=== PATIENT | female | born 1925 | race Caucasian/White ===

== ENCOUNTER → 2017-07-04 | Outpatient (CLI) | payer OTHER ==
[~2017-07-04] MED LIST: ACETAMINOPHEN325 M1 PO; ACIDOPHILUS1 EAC3 PO; ACIDOPHILUS1 EAC4 PO; ACIDOPHILUS1 EACH; ALPHAGAN P10 ML IO; ALPHAGAN P10 ML OP; ALPHAGAN P5 ML OPHTHALMIC; ANTIFUNGAL15 G1 TOP; ANUCORT-HC25 MG RE; ANUSOL-HC21 GM RE; ASPIR 8181 MG PO; AZOPT OPHTH1 %/10 M1; AZOPT OPHTH1 %/10 M1 IO; AZOPT OPHTH1 %/10 M1 OP; AZOPT OPHTH1 %/10 M1 OPHTHALMIC; BACTRIM DS TAB1 EACH PO; BENADRYL25 MG PO; BETAINE HCL300 MG PO; BETIMOL10 ML OP; BISACODYL SUPP10 MG; BISACODYL SUPP10 MG RE; BUSPAR PO; BUSPIRONE HCL10 MG PO; CALCIUM ACETAT667 M2 PO; CALCIUM LACTAT650 M1 PO; CEFUROXIME250 MG PO; CIPROFLOXACIN500 M1 PO; CITRATE OF MAG296 ML PO; COLACE 100 MG100 MG PO; COLACE100 MG PO; COUMADIN 10MG T10 M1 PO; COUMADIN 2.5MG2.5 M1 PO; COUMADIN 4 MG TA4 M1 PO; COUMADIN 5 MG TA5 M1 PO; COUMADIN PO; CYCLOBENZAPRINE10 MG PO; CYMBALTA30 MG PO; CYMBALTA60 MG PO; DERMOLATE ANTI-I2 GM TP; DOCUSATE SODIU100 MG PO; DOXYCYCLINE 10100 MG PO; DULCOLAX5 MG RE; DUONEB 2.5-0.5 M3 ML; DUONEB 2.5-0.5 M3 ML IH; ENSURE113 GM PO; FAMOTIDINE20 MG PO; FIBER LAXATIVE500 MG PO; FIBERCON625 M1 PO; FISH OIL 1,001000 M2 PO; FISH OIL 500 M1 EAC1 PO; FLEET ENEMA118 ML RC; FLEET ENEMA118 ML RE; FLEET ENEMA133 ML RECTAL; FLEXERIL PO; FURADANTIN25 MG/5 ML PO; GENTAMICIN TOP; GLYCOL; GUAIFENESIN/COD10 M1 PO; HYDROCODON-ACE1 EAC7 PO; HYDROCODON-ACE1 EAC8 PO; HYDROCODON-ACE1 EACH PO; HYDROCODONE-AP1 EA12 PO; IBUPROFEN 400400 M2 PO; IRON325 PO; JANTOVEN6 MG PO; KEFLEX500 MG PO; KETOCONAZOLE10 GM TOP; LIDODERM 5%1 PATCH; LIDODERM TOP; LUMIGAN2.5 ML OP; LYRICA 50 MG50 MG PO; LYRICA 75 MG CA75 MG PO; LYRICA100 MG PO; MELATONIN3 MG PO; MELATONIN5 M1 PO; MELOXICAM7.5 MG PO; MI ACID LIQUID355 ML PO; MILK OF MA2400 MG/10 PO; MINERIN CREME454 GM TOP; MIRALAX17 GM PO; MIRALAX255 GM PO; MOM PO; MUCINEX600 MG PO; MUPIROCIN22 GM; NORCO 5-325 TA1 EACH PO; NORTRIPTYLINE H25 M3 PO; NYSTATIN 100,0015 G1 TOP; NYSTATIN1 EA10; NYSTATIN1 EA10 TOP; NYSTATIN15 G3 TOP; OMEPRAZOLE 20 M20 M1 PO; ONDANSETRON HCL4 M2 PO; ONDANSETRON HCL4 M3 PO; ORADENT 0.1% DEN5 G1 TOP; OXYBUTYNIN 5 MG5 M1 PO; OXYBUTYNIN 5 MG5 M2 PO; OXYCODONE HCL 55 MG PO; OXYCODONE HCL5 M1 PO; PAMELOR25 MG PO; PANTOTHENIC AC500 MG PO; PEPCID20 MG PO; PERCOCET 7.5-31 EACH PO; PHOSLO667 MG PO; POTASSIUM20 OR; PRED-G 1% EYE DR5 ML OP; PRENATAL PO; PREPARATION H C51 GM TOP; PREPARATION H1 EAC2 RECTAL; PRIMAXIN PO; PROTONIX40 M1 PO; PROTONIX40 M2 PO; ROCEPHIN 11 GM/1001 PO; SEE COMMENTS; SENNA PLUS TAB1 EACH PO; SENOKOT-S TABL1 EACH PO; TERBINAFINE HC250 MG PO; TIMOLOL GL0.5 %/5 M1 IO; TIMOLOL MA0.25 %/52 OPHTHALMIC; TIMOPTIC-XE5 ML OPHTHALMIC; TOPROL XL25 MG PO; TRIAM60; TRIAMCINOLONE; TRIAMCINOLONE A15 G2; TRIAMCINOLONE A15 GM TOP; TUMS PO; TYLENOL325 MG PO; VANICREAM; VANICREAM TOP; VICODIN; VICODIN 5-5001 EACH PO; VITAMIN D3400 UNIT PO; VITAMIN D400 UNI1 PO; VITAMINC500 PO; XALATAN2.5 ML OPHTHALMIC; XARELTO15 MG PO; ZINC OXIDE56.7 G1 TOP; ZINC SULFATE 2220 M1 PO; ZINC SULFATE 2220 MG PO; ZINC10 MG PO; ZOFRAN4 MG PO; ZYPREXA2.5 MG PO; ZYVOX600 MG PO; [UNRECOGNIZED DRUG - OTHER]
== END ==
LOC: M.WC 02:13
DX: I70.238 Atherosclerosis of native arteries of right leg with ulceration of other part of lower leg (principal); I87.2 Venous insufficiency (chronic) (peripheral); L97.511 Non-pressure chronic ulcer of other part of right foot limited to breakdown of skin; L97.311 Non-pressure chronic ulcer of right ankle limited to breakdown of skin; I10 Essential (primary) hypertension; K21.9 Gastro-esophageal reflux disease without esophagitis; F33.1 Major depressive disorder, recurrent, moderate; F41.1 Generalized anxiety disorder; Z68.23 Body mass index [BMI] 23.0-23.9, adult; F41.9 Anxiety disorder, unspecified

== ENCOUNTER → 2017-07-11 | Outpatient (CLI) | payer OTHER | LOC: M.WC 02:08 | DX: I70.235 Atherosclerosis of native arteries of right leg with ulceration of other part of foot (principal); L97.511 Non-pressure chronic ulcer of other part of right foot limited to breakdown of skin; I70.233 Atherosclerosis of native arteries of right leg with ulceration of ankle; L97.311 Non-pressure chronic ulcer of right ankle limited to breakdown of skin; I87.2 Venous insufficiency (chronic) (peripheral); I10 Essential (primary) hypertension; K21.9 Gastro-esophageal reflux disease without esophagitis; F33.1 Major depressive disorder, recurrent, moderate; F41.1 Generalized anxiety disorder ==

== ENCOUNTER → 2017-07-18 | Outpatient (CLI) | payer OTHER | LOC: M.WC 02:22 | DX: I87.2 Venous insufficiency (chronic) (peripheral) (principal); L97.511 Non-pressure chronic ulcer of other part of right foot limited to breakdown of skin; L97.311 Non-pressure chronic ulcer of right ankle limited to breakdown of skin; I70.233 Atherosclerosis of native arteries of right leg with ulceration of ankle; I70.235 Atherosclerosis of native arteries of right leg with ulceration of other part of foot; I10 Essential (primary) hypertension; K21.9 Gastro-esophageal reflux disease without esophagitis; F33.1 Major depressive disorder, recurrent, moderate; F41.1 Generalized anxiety disorder; Z68.23 Body mass index [BMI] 23.0-23.9, adult; R13.10 Dysphagia, unspecified ==

== ENCOUNTER → 2017-08-02 | Outpatient (CLI) | payer OTHER | LOC: M.WC 01:40 | DX: I70.238 Atherosclerosis of native arteries of right leg with ulceration of other part of lower leg (principal); I87.2 Venous insufficiency (chronic) (peripheral); L97.511 Non-pressure chronic ulcer of other part of right foot limited to breakdown of skin; L97.311 Non-pressure chronic ulcer of right ankle limited to breakdown of skin; K21.9 Gastro-esophageal reflux disease without esophagitis; F33.1 Major depressive disorder, recurrent, moderate; F41.1 Generalized anxiety disorder ==

== ENCOUNTER → 2017-08-16 | Outpatient (CLI) | payer OTHER | LOC: M.WC 00:55 | DX: I70.238 Atherosclerosis of native arteries of right leg with ulceration of other part of lower leg (principal); L97.511 Non-pressure chronic ulcer of other part of right foot limited to breakdown of skin; L97.311 Non-pressure chronic ulcer of right ankle limited to breakdown of skin; K21.9 Gastro-esophageal reflux disease without esophagitis; F33.1 Major depressive disorder, recurrent, moderate; F41.1 Generalized anxiety disorder; F41.9 Anxiety disorder, unspecified ==

== ENCOUNTER → 2017-08-30 | Outpatient (CLI) | payer OTHER | LOC: M.WC 01:33 | DX: L97.511 Non-pressure chronic ulcer of other part of right foot limited to breakdown of skin (principal); L97.311 Non-pressure chronic ulcer of right ankle limited to breakdown of skin; I87.2 Venous insufficiency (chronic) (peripheral); I70.235 Atherosclerosis of native arteries of right leg with ulceration of other part of foot; I70.233 Atherosclerosis of native arteries of right leg with ulceration of ankle; I10 Essential (primary) hypertension; K21.9 Gastro-esophageal reflux disease without esophagitis; F33.1 Major depressive disorder, recurrent, moderate; F41.1 Generalized anxiety disorder; Z68.23 Body mass index [BMI] 23.0-23.9, adult ==

== ENCOUNTER → 2017-09-19 | Outpatient (CLI) | payer OTHER | LOC: M.WC 09:30 | DX: I70.233 Atherosclerosis of native arteries of right leg with ulceration of ankle (principal); L97.311 Non-pressure chronic ulcer of right ankle limited to breakdown of skin; I70.235 Atherosclerosis of native arteries of right leg with ulceration of other part of foot; L97.511 Non-pressure chronic ulcer of other part of right foot limited to breakdown of skin; I87.2 Venous insufficiency (chronic) (peripheral); I10 Essential (primary) hypertension; K21.9 Gastro-esophageal reflux disease without esophagitis; F33.1 Major depressive disorder, recurrent, moderate; F41.1 Generalized anxiety disorder; Z68.23 Body mass index [BMI] 23.0-23.9, adult ==

== ENCOUNTER → 2017-10-03 | Outpatient (CLI) | payer OTHER | LOC: M.WC 01:57 | DX: I70.233 Atherosclerosis of native arteries of right leg with ulceration of ankle (principal); L97.311 Non-pressure chronic ulcer of right ankle limited to breakdown of skin; I70.235 Atherosclerosis of native arteries of right leg with ulceration of other part of foot; L97.511 Non-pressure chronic ulcer of other part of right foot limited to breakdown of skin; I87.2 Venous insufficiency (chronic) (peripheral); I10 Essential (primary) hypertension; K21.9 Gastro-esophageal reflux disease without esophagitis; F33.1 Major depressive disorder, recurrent, moderate; F41.1 Generalized anxiety disorder; Z68.23 Body mass index [BMI] 23.0-23.9, adult ==

== ENCOUNTER → 2017-11-07 | Outpatient (CLI) | payer OTHER | LOC: M.WC 01:31 | DX: I70.238 Atherosclerosis of native arteries of right leg with ulceration of other part of lower leg (principal); L97.511 Non-pressure chronic ulcer of other part of right foot limited to breakdown of skin; I87.2 Venous insufficiency (chronic) (peripheral); I10 Essential (primary) hypertension; K21.9 Gastro-esophageal reflux disease without esophagitis; F33.1 Major depressive disorder, recurrent, moderate; F41.1 Generalized anxiety disorder; Z68.23 Body mass index [BMI] 23.0-23.9, adult ==

== ENCOUNTER 2017-11-16 20:53 | Inpatient (IN) | payer OTHER ==
[~2017-11-16] VITALS: Ht 167.6 cm; Wt 78.9 kg
[~2017-11-16 20:53] MED LIST changes: -ACIDOPHILUS1 EAC3 PO; -ASPIR 8181 MG PO; -CEFUROXIME250 MG PO; -COLACE100 MG PO; -FISH OIL 1,001000 M2 PO; -IBUPROFEN 400400 M2 PO; -LYRICA 50 MG50 MG PO; -LYRICA100 MG PO; -MI ACID LIQUID355 ML PO; -MILK OF MA2400 MG/10 PO; -NORCO 5-325 TA1 EACH PO; -NYSTATIN15 G3 TOP; -OMEPRAZOLE 20 M20 M1 PO; -ONDANSETRON HCL4 M2 PO; -OXYBUTYNIN 5 MG5 M2 PO; -PEPCID20 MG PO; -PERCOCET 7.5-31 EACH PO; -PRENATAL PO; -PREPARATION H C51 GM TOP; -PREPARATION H1 EAC2 RECTAL; -PROTONIX40 M1 PO; -ROCEPHIN 11 GM/1001 PO; -SENNA PLUS TAB1 EACH PO; -TIMOLOL MA0.25 %/52 OPHTHALMIC; -TRIAMCINOLONE A15 GM TOP; -TYLENOL325 MG PO; -VITAMIN D3400 UNIT PO; -XALATAN2.5 ML OPHTHALMIC; -XARELTO15 MG PO; -ZINC OXIDE56.7 G1 TOP; -ZINC SULFATE 2220 M1 PO; -ZYVOX600 MG PO
--- NOTE | 2017-11-16 21:05 | NUR ---
REPORT FROM MARÍA ELENA AT [facility]. PT HAS DEMENTIA BUT ALERT AND ORIENTED NORMALLY. EXTREMELY DISORIENTED TODAY. UTI WAS DONE TODAY AND WAS NEGATIVE. 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 SHE IS ON BACTRIM AND IT WAS STARTED A WEEK AGO FOR WOUND INFECTION. NURSE STATED APPROXIMATELY 2 MINUTES AFTER GIVING HER MEDICINE TONIGHT, SHE THREW UP MEDS AND DINNER. SHE APPARENTLY HAS BEEN TALKING TO PEOPLE LAST NIGHT AND TONIGHT WELL AND HAS BEEN MORE PRONOUNCED THE DAY HAS PROGRESSED. SHE HAS BEEN REACHING UP GRABBING AT THINGS THAT ARE NOT THERE. HALFWAY NURSE STATES APPEARS LIKE TERMINAL RESTLESSNESS. JOHN CALL BACK NUMBER IS [phone]
[2017-11-16 21:22] LABS: URINE BILIRUBIN NEGATIVE (Negative); URINE BLOOD 3+ (Negative); URINE CLARITY CLEAR; URINE COLOR YELLOW; URINE GLUCOSE-RANDOM NEGATIVE (Negative); URINE KETONES TRACE (Negative); URINE LEUKOCYTES-REFLEX 2+ (Negative); URINE NITRITE-REFLEX NEGATIVE (Negative); URINE PROTEIN 1+ (Negative); URINE SPECIFIC GRAVITY >= 1.030 (1.005-1.030); URINE UROBILINOGEN 0.2 E.U./dl (0.2-1.0)
[2017-11-16 21:29] LABS: CASTS None Seen /LPF (None Seen); CRYSTALS None Seen /LPF (None Seen); SQUAMOUS >10 Many /LPF (0-3); URINE RBC >20 Many /HPF (0-2); URINE WBC-REFLEX 6-15 Few /HPF (0-5)
[2017-11-16 21:33] LABS: ABSOLUTE BASOPHILS 0.1 thou/uL (0.0-0.2); ABSOLUTE EOSINOPHILS 0.1 thou/uL (0.0-0.7); ABSOLUTE LYMPHOCYTES 0.7 thou/uL (0.8-5.3); ABSOLUTE MONOCYTES 0.8 thou/uL (0.0-1.2); ABSOLUTE NEUTROPHILS 5.1 thou/uL (1.6-8.1); BASOPHILS 1.5 %; EOSINOPHILS 2.1 %; HEMATOCRIT 25.9 % (37.0-47.0); LYMPHOCYTES 10.1 %; MCH 23.3 pg (26.0-34.0); MCHC 30.8 g/dL (28.0-37.0); MCV 75.7 fL (80.0-100.0); MONOCYTES 11.1 %; MPV 7.7 fl. (7.2-11.1); NUCLEATED RBCS 0 /100WBC; PLATELET COUNT* 239 thou/uL (150-400); POLYS 75.2 %; RBC 3.43 mil/uL (4.20-5.00); RDW-CV 18.1 % (10.5-14.5); WBC 6.8 thou/uL (4.0-11.0)
[2017-11-16 21:41] LABS: ANION GAP 6 mmol/L (7-16); BUN 22 mg/dL (7-18); CALCIUM 8.2 mg/dL (8.5-10.1); CHLORIDE 108 mmol/L (98-107); CO2 25 mmol/L (21-32); GLUCOSE 119 mg/dL (70-99); SODIUM 139 mmol/L (136-145)
[2017-11-16 21:42] LABS: INR 1.3; PROTIME 12.8 Seconds (9.20-11.50)
[2017-11-16 21:52] LABS: ALBUMIN 3.1 g/dL (3.4-5.0); ALKALINE PHOSPHATASE 105 U/L (46-116); NT-PRO BRAIN NAT PEPTIDE 560 pg/mL (<300); SGOT 22 U/L (15-37); SGPT 18 U/L (30-65); TOTAL BILIRUBIN 0.2 mg/dL (<0.1-1.0); TROPONIN-I LEVEL <0.06 ng/mL (<0.06)
[2017-11-16] MEDS ORDERED: PEPCID20 MG PO (22:46)
[2017-11-16] MEDS ORDERED: TYLENOL325 MG PO (22:48)
[2017-11-16] MEDS ORDERED: OMEPRAZOLE 20 M20 M1 PO (22:50)
[2017-11-16] MEDS ORDERED: LYRICA100 MG PO (22:51)
[2017-11-16] MEDS ORDERED: XALATAN2.5 ML OPHTHALMIC (22:53)
[2017-11-16] MEDS ORDERED: MI ACID LIQUID355 ML PO (22:55)
[2017-11-16] MEDS ORDERED: CYMBALTA60 MG PO (23:13)
[2017-11-16] MEDS ORDERED: PREPARATION H1 EAC2 RECTAL (23:15)
[2017-11-16] MEDS ORDERED: ASPIR 8181 MG PO (23:16)
[2017-11-16] MEDS ORDERED: PERCOCET 7.5-31 EACH PO (23:20)
[2017-11-16 23:45] VITALS: BP 130/49
--- NOTE | 2017-11-17 00:01 | NUR ---
PATIENT ADMITTED TO ROOM 116 FROM ER. PATIENT IS ALERT BUT VERY CONFUSED, ANXIOUS AND DISORIENTED AT THIS TIME. PATIENT HAS HISTORY OF DEMENTIA. PATIENT UNABLE TO ANSWER ADMISSION QUESTIONS APPROPRIATELY. [facility] AND DRESSING TO RIGHT LOWER EXTREMITY IS C/D/I. WOUND CARE CONSULTED. PATIENT IS CURRENTLY BEING SEEN BY [facility]OUND [facility]INIC AND ADMITTED WITH WITH WOUND TO RIGHT LOWER EXTREMITY FROM INTERMEDIATE. NO PICTURES TAKEN AT THIS TIME D/T PATIENT BEING VERY ANXIOUS AND AGITATED. ADMISSION ROUTINES IN PROGRESS. FALL PRECAUTIONS IN PLACE AND HOURLY ROUNDS TO BE MADE. WILL CONTINUE WITH PLAN OF CARE AND NURSING TO MONITOR.
[2017-11-17 00:26] VITALS: BP 126/73
[2017-11-17] MEDS ORDERED: IBUPROFEN 400400 M2 PO (04:03)
[2017-11-17] MEDS ORDERED: BACTRIM DS TAB1 EACH PO (04:07)
[2017-11-17 04:34] LABS: HEMATOCRIT 23.2 % (37.0-47.0); HEMOGLOBIN 7.3 gm/dL (12.0-15.0); MCH 23.7 pg (26.0-34.0); MCHC 31.5 g/dL (28.0-37.0); MCV 75.3 fL (80.0-100.0); MPV 8.2 fl. (7.2-11.1); RBC 3.09 mil/uL (4.20-5.00); WBC 6.5 thou/uL (4.0-11.0)
[2017-11-17 04:36] LABS: CALCIUM 7.6 mg/dL (8.5-10.1); CREATININE 0.9 mg/dL (0.6-1.3); POTASSIUM 4.1 mmol/L (3.5-5.1)
[2017-11-17] MEDS ORDERED: CEFUROXIME250 MG PO (04:39)
[2017-11-17] MEDS ORDERED: ROCEPHIN 11 GM/1001 PO (04:41)
[2017-11-17] MEDS ORDERED: ZINC OXIDE56.7 G1 TOP (04:44)
--- NOTE | 2017-11-17 07:49 | NUR ---
PATIENT HAS SLEPT WELL SINCE BEING ADMITTED. VSS ON RA, ALTHOUGH PULSE SLIGHTLY TACHYCARDIC. PATIENT DOES NOT VERBALIZE ANY PAIN. PATIENT DOES NOT ANSWER QUESTIONS APPROPRIATELY AND HAS HISTORY OF DEMENTIA. OROZCO TO DEPENDENT DRAINAGE WITH DARK YELLOW URINE OUTPUT. DRESSING TO RIGHT LOWER EXTREMITY IS C/D/I. IV IN LEFT AC-NS @ 100ML/HR. IV ABT GIVEN WITHOUT ANY ADVERSE SIDE EFFECTS NOTED. FALL PRECAUTIONS IN PLACE AND HOURLY ROUNDS MADE. WILL CONTINUE WITH PLAN OF CARE AND NURSING TO MONITOR.
[2017-11-17 08:00] VITALS: BP 108/43
--- NOTE | 2017-11-17 15:22 | EKG ---
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1925 Requested By: Jaqueline Julian Order Number: [id number] MD: Arnie Latham Measurements Intervals [place] Rate: 98 P: 64 NM: 219 QRS: 52 QRSD: 106 T: -66 QT: 367 QTc: 469 Interpretive Statements Sinus rhythm Ventricular premature complex Prolonged NM interval artifact noted Abnrm T, consider ischemia, anterolateral Compared to ECG 10/29/2012 01:08:53 Ventricular premature complex(es) now present Electronically Signed On 11-17-2017 15:22:33 CDT by Arnie Latham [email or web address] <ELECTRONICALLY SIGNED> By: Arnie Latham MD, FAC 11/17/17 1522 2159 Arnie Latham MD, [facility] /EPI
--- NOTE | 2017-11-17 16:37 | NUR ---
PATIENT ALERT AND ORIENTED TO SELF. ABLE TO TELL ME NAME AND DATE OF . PATIENT KNOWS SHES IN THE HOSPITAL, BUT UNABLE TO TELL ME WHERE. VITAL SIGNS STABLE ON ROOM AIR. AFEBRILE AT THIS TIME. PERRLA. IV PATENT WITH FLUIDS INFUSING. PATIENT HAS REFUSED PO MEDICATIONS, EYE DROPS, AND TOPICAL CREAMS ALL DAY. PATIENT ALSO HAS NOT WANTED TO EAT TODAY, BUT HAS TAKEN A COUPLE SIPS OF WATER. PATIENT HAS REFUSED TO ALLOW THIS NURSE TO LOOK AT WOUND ON FOOT. UNABLE TO OBTAIN PHOTO. REFUSED SCD'S. PATIENT HAS ALLOWED US TO TURN HER EVERY TWO HOURS, HOWEVER SCREAMS AND SAYS "GET OUT." PATIENT'S SON, ASUNCION, CAME BY AND STATED THAT SOME CONFUSION IS BASE LINE FOR HER, BUT THAT SHE'S USUALLY ABLE TO IDENTIFY WHERE SHE IS AT. SON ALSO STATED THAT PATIENT DOESN'T LIKE BEING IN THE HOSPITAL. ASUNCION PLANS TO RETURN IN THE MORNING AND CAN BE REACHED AT [phone]. FALL PRECAUTIONS IN PLACE AND BED ALARM ON. HOURLY ROUNDS MAINTAINED THROUGHOUT THE SHIFT. CALL LIGHT WITHIN REACH. NURSING WILL CONTINUE TO MONITOR.
[2017-11-17 17:35] VITALS: BP 104/77
[2017-11-17 21:00] VITALS: BP 155/60
[2017-11-18 03:41] LABS: HEMOGLOBIN 8.3 gm/dL (12.0-15.0); MCH 23.4 pg (26.0-34.0); MCHC 30.8 g/dL (28.0-37.0); MCV 75.9 fL (80.0-100.0); RBC 3.56 mil/uL (4.20-5.00); RDW-CV 18.8 % (10.5-14.5); WBC 5.6 thou/uL (4.0-11.0)
[2017-11-18 03:51] LABS: INR 1.1; PROTIME 11.1 Seconds (9.20-11.50)
[2017-11-18 03:57] LABS: CALCIUM 8.1 mg/dL (8.5-10.1); CREATININE 0.7 mg/dL (0.6-1.3); POTASSIUM 3.8 mmol/L (3.5-5.1)
--- NOTE | 2017-11-18 04:37 | NUR ---
PATIENT HAS RESTED THROUGHOUT THE NIGHT. RESTLESS AT TIMES. PATIENT DID HAVE SOME NAUSEA WITH SMALL AMOUNT OF EMESIS. MEDICATION GIVEN TO HELP RELIEVE NAUSEA. VSS ON RA, ALTHOUGH PULSE IS SLIGHTLY TACHYCARDIC. OROZCO TO DEPENDENT DRAINAGE WITH YELLOW URINE OUTPUT. 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 DRESSING IS C/D/I. PATIENT CURRENTLY BEING SEEN IN WOUND CARE CLINIC. PATIENT REMAINS ON BEDREST AND TURNED EVERY 2 HRS. PATIENT IS ALERT TO SELF BUT VERY CONFUSED AND GETS AGITATED WHEN MOVED AND NURSE TRYS TO ASSESS PATIENT. IV IN LEFT AC-NS @ 100ML/HR. IV ABT GIVEN WITHOUT ANY ADVERSE SIDE EFFECTS NOTED. FALL PRECAUTIONS IN PLACE AND HOURLY ROUNDS MADE. WILL CONTINUE WITH PLAN OF CARE AND NURSING TO MONITOR.
[2017-11-18 08:30] VITALS: BP 134/59
--- NOTE | 2017-11-18 11:56 | EKG ---
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1925 Requested By: Paris Demarco Order Number: [id number] Shantal MD: Arnie Latham Measurements Intervals [place] Rate: 73 P: 86 [place]: 206 QRS: 69 QRSD: 113 T: 16 QT: 437 QTc: 482 Interpretive Statements Sinus rhythm with first degree av block Ventricular premature complex consider Inferior infarct, old Compared to ECG 11/16/2017 21:59:11 Possible ischemia no longer present Electronically Signed On 11-18-2017 11:56:37 CDT by Arnie Latham [email or web address] <ELECTRONICALLY SIGNED> By: Arnie Latham MD, [facility] 11/18/17 1156 0943 0943 Arnie Latham MD, [facility] /EPI
--- NOTE | 2017-11-18 13:04 | NUR ---
ASSUMED CARES OF PT AT 0700. PT IN BED, BED IN LOW LOCKED POSITION WITH FALL PRECAUTIONS IN PLACE. CALL BUTTON AND PERSONAL ITEMS IN PT REACH. PT HAS NOT USED CALL BUTTON AT THIS TIME. PT ALERT TO SELF, CONFUSED, OCC. AGITATED AND COMBATIVE R/T DEMENTIA. PT FROM [facility]. HX OF AFIB AND TACHYCARDIA, PT HRRR THIS AM PER AUSCULTATION. LUNGS CLEAR TO DIMINISHED PER AUSCULTATION. VS ON RA, AFEBRILE, PERRLA. IV IN LEFT AC PATENT TO FLUIDS, NS 100 ML/HR, ABT THERAPY TOLERATED, SEE MAR. PHOTOS TAKEN DURING DRESSING CHANGE ON RIGHT LE, CONTACT PRECAUTIONS R/T MRSA IN WOUND AND VRE. OROZCO CATH PATENT WITH CLEAR YELLOW URINE, 350 OUT AT THIS TIME. PT EXTENSIVE, LIFT TO W/C. DNR IN CHART. Q2 TURN. EKG IN E.D. SHOWED A RECENT INFARCT. OCC. FEED ASSIST, SET UP. PT COUGHED UP UNUSUAL SUBSTANCE YESTERDAY SHIFT AND SENT TO LAB. CONSULTS WOUND CARE, OT, PT AND MEDICINE. REGULAR DIET. MONITOR PT/INR. PT PROGRESSING TOWARDS GOAL. WILL MONITOR PT PROGRESS AND STATUS. PT TO BE TRANSFERED TO MED/SURG THIS SHIFT. SON TO BE NOTIFIED/CALLED BY THIS NURSE.
--- NOTE | 2017-11-18 13:17 | NUR ---
WOUND CARE NOTE: CONSULT RECEIVED FOR BILATERAL LE WOUNDS/CELLULITIS. PATIENT PRESENTS WITH A DRY, STABLE SLOUGH TISSUE TO THE DORSAL ASPECT OF THE RIGHT 2ND TOE AND BETWEEN THE 2ND AND 3RD METATARSAL HEAD. THESE SLOUGH AREAS ARE YELLOW. PER-WOUNDS WITH INFLAMMATION. MEDIALLY THERE ARE TWO AREAS OF BLANCHABLE REDNESS, NO OPEN LESIONS NOTED. HEMOSIDERIN STAINING PRESENT TO THE PRE-TIBIAL AREA. PALPABLE PEDAL PULSES. LOTION APPLIED TO INTACT SKIN. APPLIED SKIN PREP OVER REDDENED AREAS TO HELP PROTECT. APPLIED ABD TO ASSIST WITH GIVING AREA EXTRA PADDING FROM WRAP. RIGHT 2ND TOE, DORSAL ASPECT MEASURES 0.5X0.7X0.1. RIGHT DORSAL ASPECT OF FOOT, BETWEEN 2ND AND 3RD METATARSAL HEAD MEASURES 0.4X0.5X0.1. BOTH AREAS CLEANSED WITH WOUND CLEANSER, PATTED DRY. APPLIED VASELINE GAUZE. COVERED WITH ABD. WRAPPED LEG WITH KERLIX AND TIMI FROM TOES TO KNEE. PATIENT TOLERATED DRESSING CHANGE WELL. RECOMMEND OFFLOAD BILATERAL HEELS WITH HEELMEDIX BOOTS DAILY DRESSING CHANGES FOLLOW UP IN WOUND CENTER UPON DISCHARGE
--- NOTE | 2017-11-18 13:31 | NUR ---
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 SENT IN FOR INCREASED CONFUSION AT [facility]. HAS HX OF DEMENTIA BUT MENTAL STATUS WORSE. TODAY IS ALERT TO SELF. SHE IS WC BOUND AT [facility].HOME. MAX ASSIST OR NEENA TO TRANSFER. NORMALLY FEEDS SELF WITH SET UP. IS DEPENDENT FOR ADLS. DPOA IS HER SON,LAUREN. NO COPY ON CHART. HAS OUTSIDE OF HOSPITAL DNR ORDER.
--- NOTE | 2017-11-18 14:37 | NUR ---
PATIENT TRANSFERRED FROM [facility]OM 116 TO ROOM 304. PATIENT ALERT AND ORIENTED X 3, OTHER CONFUSED. AGREE WITH AM ASSESSMENT THATS CHARTED. IVF AND SCHED ABX INFUSING. BED ALARM IN PLACE. PRAFO BOOTS ORDERED, HEELS ELEVATED. CONTACT PRECAUTIONS IN PLACE. WILL CONTINUE TO MONITOR.
--- NOTE | 2017-11-18 15:08 | 2DMMODE ---
[place] [address] 2 D/M-MODE ECHOCARDIOGRAM Name: SALMA PAYNE Room: [address] IN [facility]#: [id number] Admission: 11/16/17 Attend Phys: Brian Son Discharge: Date of : [birth year] Date of Service: 11/18/17 1507 Report #: [id number] THIS REPORT FOR: //name// APPROVED REPORT Study performed: 11/18/2017 09:12:30 EXAM: Comprehensive 2D, Doppler, and color-flow Echocardiogram Patient Location: In-Patient Room #: 116 Status: routine BSA: 1.88 HR: 82 bpm BP: 134/59 mmHg Rhythm: NSR Other Information Study Quality: Good Indications Abnormal ECG 2D Dimensions IVSd: 10.05 (7-11mm) LVOT Diam: 21.86 (18-24mm) LVDd: 43.53 mm PWd: 8.82 (7-11mm) Ascending Ao: 32.19 (22-36mm) LVDs: 22.10 (25-40mm) Aortic Root: 32.85 mm Volumes Left Atrial Volume (Systole) LA ESV Index: 23.20 mL/m2 Aortic Valve AoV Peak Hebert.: 3.65 m/s AO Peak Gr.: 53.30 mmHg LVOT Max P.62 mmHg AO Mean Gr.: 30.97 mmHg LVOT Mean P.37 mmHg LVOT Max V: 1.29 m/s AO V2 VTI: 90.55 cm LVOT Mean V: 0.85 m/s KAYLEEN (VTI): 1.35 cm2 LVOT V1 VTI: 32.61 cm AI [place]: 3.83 m/s2 AI PHT: 335.92 ms Mitral Valve E/A Ratio: 0.88 [place] [address] 2 D/M-MODE ECHOCARDIOGRAM Name: SALMA PAYNE Room: [address] IN ..#: [id number] Admission: 11/16/17 Attend Phys: Brian Son Discharge: Date of : [birth year]/31/[birth year] Date of Service: 11/18/17 1507 Report #: [id number] MV Decel. Time: 194.00 ms MV E Max Hebert.: 1.16 m/s MV PHT: 56.26 ms MVA (PHT): 3.91 cm2 TDI E/Lateral E': 14.50 E/Medial E': 7.73 Medial E' Hebert.: 0.15 m/s Lateral E' Hebert.: 0.08 m/s Pulmonary Valve PV Peak Hebert.: 0.97 m/s PV Peak Gr.: 3.78 mmHg Tricuspid Valve TR Peak Gr.: 26.35 mmHg RVSP: 31.00 mmHg Left Ventricle The left ventricle is normal size. There is normal LV segmental wall motion. There is normal left ventricular wall thickness. Left ventricular systolic function is normal. The left ventricular ejection fraction is within the normal range. LVEF is 60-65%. Grade I - abnormal relaxation pattern. Right Ventricle The right ventricle is normal size. The right ventricular systolic function is normal. Atria The left atrium size is normal. The right atrium size is normal. Aortic Valve Moderate aortic valve sclerosis. Mild aortic regurgitation. Moderate aortic stenosis. Mitral Valve The mitral valve is normal in structure. Trace mitral regurgitation. No evidence of mitral valve stenosis. Tricuspid Valve The tricuspid valve is normal in structure. Trace tricuspid regurgitation. The RVSP is 30-35 mmHg. Pulmonic Valve Pulmonic valve is not well visualized. Trace [place]mon[place] [address] 2 D/M-MODE ECHOCARDIOGRAM Name: SALMA PAYNE Room: [address]#: [id number] Admission: 11/16/17 Attend Phys: Brian Son Discharge: Date of : [birth year] Date of Service: 11/18/17 1507 Report #: [id number] Great Vessels The aortic root is normal in size. IVC is normal in size and collapses with >50% inspiration Pericardium There is no pericardial effusion. <Conclusion> LVEF is 60-65%. Moderate aortic stenosis. Mild aortic regurgitation. <ELECTRONICALLY SIGNED> By: Arnie Latham MD, [facility] 11/18/17 1507 1507 1507 Arnie Latham MD, FAC /INF
[2017-11-18 16:00] VITALS: BP 138/57
[2017-11-18 19:50] VITALS: BP 132/61
[2017-11-19 04:51] LABS: INR 1.2; PROTIME 11.2 Seconds (9.20-11.50)
[2017-11-19 05:09] LABS: HEMATOCRIT 25.2 % (37.0-47.0); HEMOGLOBIN 7.7 gm/dL (12.0-15.0); MCH 23.4 pg (26.0-34.0); MCHC 30.8 g/dL (28.0-37.0); MCV 75.9 fL (80.0-100.0); MPV 8.3 fl. (7.2-11.1); RBC 3.32 mil/uL (4.20-5.00); RDW-CV 18.5 % (10.5-14.5); WBC 5.6 thou/uL (4.0-11.0)
[2017-11-19 05:45] LABS: ALBUMIN 2.6 g/dL (3.4-5.0); CALCIUM 8.3 mg/dL (8.5-10.1); CREATININE 0.7 mg/dL (0.6-1.3); MAGNESIUM 2.1 mg/dL (1.8-2.4); TOTAL BILIRUBIN 0.3 mg/dL (<0.1-1.0); TOTAL PROTEIN 6.3 g/dL (6.4-8.2)
--- NOTE | 2017-11-19 07:32 | NUR ---
PT SLEPT ON AND OFF THIS SHIFT. ASSESSMENT DOCUMENTED. MEDS GIVEN PER E-AUG. IV PATENT, FLUIDS INFUSING. PT REPOSITIONED THROUGH NIGHT. PT DISORIENTED AND HALLUCINATING THROUGH NIGHT. WILL CONTINUE WITH PLAN OF CARE.
--- NOTE | 2017-11-19 09:55 | NUR ---
RECIEVED O.T. EVAL AND CHART REVIEWED. PT. IS AT BASELINE DEPENDENT LEVEL FOR ADLS AND MAX A/NEENA LIFT FOR TRANSFERS. PT. FEEDS HERSELF WITH S/U PER NURSING WHICH IS HER BASELINE. THUS, O.T. SERVICES ARE NOT INDICATED AT THIS TIME.
--- NOTE | 2017-11-19 11:06 | NUR ---
BRIAN called [facility] and left a message regarding pt possibly to dc home to LTC at [facility] tomorrow, Monday 11/20. SW to continue to follow to assist with safe dc planning/transition back to [facility].
[2017-11-19 15:55] VITALS: BP 139/52
--- NOTE | 2017-11-19 18:42 | NUR ---
PATIENT HAS BEEN A/O TO PERSON, PLACE AND TIME, CONFUSED AND FORGETFUL AT TIMES. PATIENT HAS DENIED PAIN. DRESSING TO RIGHT FOOT CHANGED, BILATERAL FEET REMAIN IN HEELMEDIX BOOTS AND ELEVATED. PATIENT TURNED WHEN ALLOWED. ERNESTO DISCONTINUED THIS SHIFT. PATIENT UTILIZING BEDPAN THIS SHIFT. PATIENT HAD CT OF HEAD COMPLETED THIS SHIFT. SON IN THIS AM AND UPDATED ON PLAN OF CARE. PATIENT REMAINS IN CONTACT ISOLATION FOR MRSA/VRE. BED ALARM ON FOR SAFETY. CALL LIGHT WITHIN REACH. WILL CONTINUE WITH PLAN OF CARE.
[2017-11-19 20:00] VITALS: BP 127/47
[2017-11-20 04:25] LABS: INR 1.2; PROTIME 11.2 Seconds (9.20-11.50)
--- NOTE | 2017-11-20 05:14 | NUR ---
PT SLEPT MOST OF SHIFT. ASSESSMENT DOCUMENTED. MEDS GIVEN PER E-MAR. TYLENOL GIVEN FOR A HEADACHE. PT REPOSTITIONED THROUGH NIGHT. WILL CONTINUE WITH PLAN OF CARE.
--- NOTE | 2017-11-20 06:38 | NUR ---
PT NAUSOUS AT THIS TIME AND IS COMPLAINING OF A HEADACHE. PT REFUSING MEDICATIONS FOR HEADACHE AND AM MEDS. PT STATED SHE WOULD INFORM STAFF IF SHE WANTED TO TAKE MEDICATIONS.
[2017-11-20 08:30] VITALS: BP 150/75
[2017-11-20] MEDS ORDERED: PREPARATION H1 EAC2 RECTAL (13:02)
--- NOTE | 2017-11-20 14:40 | NUR ---
CM WAS INFORMED BY THE RN IN-CHARGE OF THE PATIENT THAT THE PHYSICAN HAS WRITTEN D/C ORDERS. CM SPOKE TO FRANKO WITH ADMISSIONS AT [facility] TO INFORM OF THE PATIENTS D/C ORDERS AND TO DISCUSS TRANSPORTATION. FRANKO INFORMS THAT THE PATIENT WILL NEED [facility] TRANSPORT. CM SPOKE TO THE PATIENT TO DISCUSS HER D/C BACK TO [facility] AND TRANSPORTATION. PATIENT IN AGREEMENT. CM SETUP TRNASPORTATION WITH [facility] FOR 1530. CM INFORMED THE RN OF THE TIME OF TRANSPORT AND WHERE TO CALL REPORT. CM WILL REMIAN AVAILABLE TO ASSIST AND FOLLOW NEEDED.
[2017-11-20 14:49] VITALS: BP 150/75
--- NOTE | 2017-11-20 16:00 | NUR ---
PATIENT REFUSED BREAKFAST AND PILLS THIS AM. PATIENT VOMITTED APPROX 30MLS YELLOW BILE, PRN ZOFRAN GIVEN WITH GOOD RELIEF NOTED. DR. SMYTH AWARE. TURNED Q2. PHOTO TAKEN OF RIGHT LEG WOUND. REDRESSED ORDERED. IV ABX COMPLETED THIS AM. REPORT CALLED TO JEREL MOORE AT [facility]. PATIENT TAKEN VIA AMBULANCE WITH ALL BELONGINGS. PATIENTS SON MOHINI AWARE OF TRANSFER BACK TO FACILITY.
--- NOTE | 2018-04-07 15:06 | PATH ---
[address] [address] PATHOLOGY RPT PROCEDURE Name: ELMERALYSON L Room: [address] IN M.R.#: [id number] Admission: 11/16/17 Date of : [birth year] Discharge: 11/20/17 Report #: [id number] Path Case #: [id number] [facility] Accession Number: [id number] . 01 Material submitted: . POSSIBLE WORM . 01 Clinical history: . Suspicious of a possible worm . 02 Diagnosis: "Coughed up by patient": - Degenerating structures suggestive of parasitic organism(s)/nematode(s). See comment. (HERNÁN:kyle/leona; 11/20/2017) QTP/11/20/2017 . 02 Comment: D[address]. Holland at approximately 1555 on 11/20/2017. . 02 Electronically signed: . Lawrence Alvares MD, Pathologist NPI- [id number] . 01 Gross description: . The specimen is received in formalin, labeled "Alyson Anne," and additionally labeled on the requisition as, "coughed up by patient". Received is yellow-anne possible mucus measuring 4.5 x 0.9 x 0.6 cm in aggregate dimensions. The specimen is submitted entirely in cassette A1. A gross photograph is taken. (CAA; 11/19/2017) QAC/QAC . 02 CPT . [id number] Specimen Comment: A duplicate report has been generated due to demographic updates. Performed at: 01 [facility] [address] [place] [address] [address], [place], [place] [id number] MD Supa Purcell MD Phone: [phone] Performed at: [address] [facility] [address] [facility] [place], [place] [id number] MD Lawrence Alvares MD Phone: [phone]
== END 2017-11-20 16:03 | DRG 871 ==
LOC: M.ERS 20:53 → M.TBA-ER 22:31 → M.ORTHSURG 22:31 → M.3W 11-18 13:57
PROVIDERS: Emergency Medicine; Internal Medicine; ADMIT Family Medicine
DX: A41.9 Sepsis, unspecified organism (principal); G93.40 Encephalopathy, unspecified; N39.0 Urinary tract infection, site not specified; E44.1 Mild protein-calorie malnutrition; L03.818 Cellulitis of other sites; I48.91 Unspecified atrial fibrillation; K58.9 Irritable bowel syndrome, unspecified; I25.10 Atherosclerotic heart disease of native coronary artery without angina pectoris; F03.90 Unspecified dementia, unspecified severity, without behavioral disturbance, psychotic disturbance, mood disturbance, and anxiety; I35.0 Nonrheumatic aortic (valve) stenosis; Z66 Do not resuscitate; D64.9 Anemia, unspecified; S91.302A Unspecified open wound, left foot, initial encounter; X58.XXXA Exposure to other specified factors, initial encounter; Z79.01 Long term (current) use of anticoagulants; Z86.14 Personal history of Methicillin resistant Staphylococcus aureus infection; Z79.2 Long term (current) use of antibiotics; Z88.0 Allergy status to penicillin; Z79.82 Long term (current) use of aspirin; Z68.28 Body mass index [BMI] 28.0-28.9, adult; Z79.899 Other long term (current) drug therapy; Z81.8 Family history of other mental and behavioral disorders; Y93.89 Activity, other specified; Y92.89 Other specified places as the place of occurrence of the external cause; Y99.8 Other external cause status

== ENCOUNTER 2017-12-05 10:16 | Inpatient (IN) | payer OTHER ==
[~2017-12-05] VITALS: Ht 162.6 cm; Wt 74.4 kg
[~2017-12-05 10:16] MED LIST changes: +ASPIR 8181 MG PO; +CEFUROXIME250 MG PO; +IBUPROFEN 400400 M2 PO; +LYRICA100 MG PO; +MI ACID LIQUID355 ML PO; +OMEPRAZOLE 20 M20 M1 PO; +PEPCID20 MG PO; +PERCOCET 7.5-31 EACH PO; +PREPARATION H1 EAC2 RECTAL; +ROCEPHIN 11 GM/1001 PO; +TYLENOL325 MG PO; +XALATAN2.5 ML OPHTHALMIC; +ZINC OXIDE56.7 G1 TOP
[2017-12-05 10:25] VITALS: BP 164/81
[2017-12-05 11:14] LABS: HEMATOCRIT 32.1 % (37.0-47.0); HEMOGLOBIN 9.7 gm/dL (12.0-15.0); MCH 22.5 pg (26.0-34.0); MCHC 30.1 g/dL (28.0-37.0); MCV 74.6 fL (80.0-100.0); NUCLEATED RBCS 0 /100WBC; PLATELET COUNT* 331 thou/uL (150-400); WBC 19.4 thou/uL (4.0-11.0)
[2017-12-05 11:18] LABS: URINE BLOOD NEGATIVE (Negative); URINE CLARITY CLEAR; URINE COLOR YELLOW; URINE GLUCOSE-RANDOM NEGATIVE (Negative); URINE KETONES 1+ (Negative); URINE LEUKOCYTES-REFLEX NEGATIVE (Negative); URINE NITRITE-REFLEX NEGATIVE (Negative); URINE PROTEIN 2+ (Negative); URINE SPECIFIC GRAVITY >= 1.030 (1.005-1.030); URINE UROBILINOGEN 0.2 E.U./dl (0.2-1.0)
[2017-12-05 11:22] LABS: ICTOTEST (BILI CONFIRMATORY) Negative (Negative); URINE BILIRUBIN 1+ (Negative)
[2017-12-05 11:26] LABS: BACTERIA-REFLEX 1-9 Few /HPF (None Seen); MUCUS >6 Heavy strn/LPF (None Seen); SQUAMOUS 4-10 Moderate /LPF (0-3); URINE RBC 0-2 Rare /HPF (0-2); URINE WBC-REFLEX 0-5 Rare /HPF (0-5)
[2017-12-05 11:27] LABS: CRYSTALS None Seen /LPF (None Seen); HYALINE CASTS 0-3 Few /LPF (None Seen)
[2017-12-05 11:31] LABS: ABSOLUTE LYMPHOCYTES 0.4 thou/uL (0.8-5.3); ABSOLUTE MONOCYTES 1.6 thou/uL (0.0-1.2); ABSOLUTE NEUTROPHILS 17.5 thou/uL (1.6-8.1); ANISOCYTOSIS 1+; HYPOCHROMASIA 1+; MICROCYTES 1+; PLATELET ESTIMATE ADEQUATE; POIKILOCYTOSIS 1+
[2017-12-05 11:36] LABS: ANION GAP 13 mmol/L (7-16); BUN 28 mg/dL (7-18); CALCIUM 8.9 mg/dL (8.5-10.1); CHLORIDE 103 mmol/L (98-107); CO2 24 mmol/L (21-32); CREATININE 0.8 mg/dL (0.6-1.3); GLUCOSE 122 mg/dL (70-99); SODIUM 140 mmol/L (136-145)
[2017-12-05] MEDS ORDERED: BENADRYL25 MG PO (11:39)
[2017-12-05] MEDS ORDERED: SENNA PLUS TAB1 EACH PO (11:40)
[2017-12-05] MEDS ORDERED: TYLENOL325 MG PO (11:40)
[2017-12-05 11:41] LABS: ALBUMIN 3.3 g/dL (3.4-5.0); ALKALINE PHOSPHATASE 133 U/L (46-116); MAGNESIUM 2.1 mg/dL (1.8-2.4); SGOT 14 U/L (15-37); SGPT 12 U/L (30-65); TOTAL BILIRUBIN 0.4 mg/dL (<0.1-1.0); TOTAL PROTEIN 7.6 g/dL (6.4-8.2); TROPONIN-I LEVEL <0.06 ng/mL (<0.06)
[2017-12-05] MEDS ORDERED: PEPCID20 MG PO (11:41)
[2017-12-05] MEDS ORDERED: OMEPRAZOLE 20 M20 M1 PO (11:41)
[2017-12-05] MEDS ORDERED: LYRICA 50 MG50 MG PO (11:42)
[2017-12-05] MEDS ORDERED: TIMOLOL MA0.25 %/52 OPHTHALMIC (11:44)
[2017-12-05] MEDS ORDERED: AZOPT OPHTH1 %/10 M1 OPHTHALMIC (11:45)
[2017-12-05] MEDS ORDERED: CYMBALTA60 MG PO (11:45)
[2017-12-05] MEDS ORDERED: MI ACID LIQUID355 ML PO ×2 (11:46→18:50)
[2017-12-05] MEDS ORDERED: TOPROL XL25 MG PO (11:46)
[2017-12-05] MEDS ORDERED: MILK OF MA2400 MG/10 PO (11:50)
[2017-12-05] MEDS ORDERED: MIRALAX17 GM PO (11:51)
[2017-12-05] MEDS ORDERED: BUSPIRONE HCL10 MG PO (11:52)
[2017-12-05] MEDS ORDERED: ONDANSETRON HCL4 M2 PO (11:52)
[2017-12-05] MEDS ORDERED: XALATAN2.5 ML OPHTHALMIC (11:53)
[2017-12-05] MEDS ORDERED: PREPARATION H C51 GM TOP (11:56)
[2017-12-05] MEDS ORDERED: PRENATAL PO (11:57)
[2017-12-05] MEDS ORDERED: IBUPROFEN 400400 M2 PO (11:58)
[2017-12-05] MEDS ORDERED: CYMBALTA30 MG PO (11:58)
[2017-12-05] MEDS ORDERED: PROTONIX40 M1 PO (11:59)
[2017-12-05] MEDS ORDERED: OXYBUTYNIN 5 MG5 M2 PO (11:59)
[2017-12-05] MEDS ORDERED: PANTOTHENIC AC500 MG PO (11:59)
[2017-12-05] MEDS ORDERED: VITAMINC500 PO (12:01)
[2017-12-05] MEDS ORDERED: FISH OIL 1,001000 M2 PO (12:04)
[2017-12-05] MEDS ORDERED: ZINC SULFATE 2220 M1 PO (12:04)
[2017-12-05] MEDS ORDERED: COLACE100 MG PO (12:04)
[2017-12-05] MEDS ORDERED: ACIDOPHILUS1 EAC3 PO (12:05)
[2017-12-05] MEDS ORDERED: VITAMIN D3400 UNIT PO (12:05)
[2017-12-05] MEDS ORDERED: NORCO 5-325 TA1 EACH PO (12:06)
[2017-12-05] MEDS ORDERED: DOXYCYCLINE 10100 MG PO (12:06)
[2017-12-05] MEDS ORDERED: XARELTO15 MG PO (12:06)
[2017-12-05 12:21] LABS: ESR (SEDRATE) 47 mm/hr (0-30)
--- NOTE | 2017-12-05 15:17 | EKG ---
[place] [address] ELECTROCARDIOGRAM REPORT Name: SALMA PAYNE Room: [place] [address] ADM IN [facility]#: [id number] Admission: 12/05/17 Attend Phys: Meenakshi Tristan Discharge: Date of : [birth year] Report #: [id number] THIS REPORT FOR: //name// [facility] ED Test Date: 2017-12-05 Test Time: 10:50:46 Pat Name: SALMA PAYNE Department: Room: Gender: F Rn Orthopedic: [place] : 1925 Requested By: Teresita Eckert Order Number: [id number] MD: Eusebio Friedman Measurements Intervals [place] Rate: 95 P: 64 [place]: 197 QRS: 48 QRSD: 100 T: -26 QT: 380 QTc: 478 Interpretive Statements Sinus rhythm Ventricular premature complex Inferior infarct, age indeterminate Compared to ECG 11/18/2017 09:43:01 First degree AV block no longer present Myocardial infarct finding still present Electronically Signed On 12-05-2017 15:17:02 CDT by Eusebio Friedman [email or web address] <ELECTRONICALLY SIGNED> By: Eusebio Friedman MD, FAC 12/05/17 1517 1050 1050 Eusebio Friedman MD, [facility] /EPI
[2017-12-05 16:35] VITALS: BP 106/42
[2017-12-05 16:50] VITALS: BP 124/87
[2017-12-05] MEDS ORDERED: TRIAMCINOLONE A15 GM TOP (18:57)
[2017-12-05] MEDS ORDERED: NYSTATIN15 G3 TOP (18:58)
[2017-12-05 20:00] VITALS: BP 144/62
[2017-12-06] VITALS: BP 122/45
[2017-12-06 04:00] VITALS: BP 120/54
[2017-12-06 09:21] VITALS: BP 114/53
[2017-12-06 12:00] VITALS: BP 95/37
[2017-12-06 16:45] VITALS: BP 111/39
[2017-12-06 20:00] VITALS: BP 132/73
[2017-12-07] VITALS: BP 126/55
[2017-12-07 04:00] VITALS: BP 157/65
[2017-12-07 12:41] VITALS: BP 121/61
[2017-12-07 16:34] VITALS: BP 124/59
[2017-12-07 20:00] VITALS: BP 145/84; BP 150/65
[2017-12-08] VITALS (7 sets, daily range): BP systolic 125–159; BP diastolic 58–75
[2017-12-08 06:20] LABS: ABSOLUTE BASOPHILS 0.1 thou/uL (0.0-0.2); ABSOLUTE EOSINOPHILS 0.1 thou/uL (0.0-0.7); ABSOLUTE LYMPHOCYTES 0.7 thou/uL (0.8-5.3); ABSOLUTE MONOCYTES 0.5 thou/uL (0.0-1.2); ABSOLUTE NEUTROPHILS 3.8 thou/uL (1.6-8.1); BASOPHILS 1.3 %; EOSINOPHILS 2.5 %; HEMATOCRIT 27.8 % (37.0-47.0); HEMOGLOBIN 8.5 gm/dL (12.0-15.0); LYMPHOCYTES 13.6 %; MCH 22.9 pg (26.0-34.0); MCHC 30.6 g/dL (28.0-37.0); MCV 74.8 fL (80.0-100.0); MONOCYTES 9.7 %; MPV 7.5 fl. (7.2-11.1); NUCLEATED RBCS 0 /100WBC; PLATELET COUNT* 291 thou/uL (150-400); POLYS 72.9 %; RBC 3.71 mil/uL (4.20-5.00); RDW-CV 19.7 % (10.5-14.5); WBC 5.3 thou/uL (4.0-11.0)
[2017-12-08 06:32] LABS: ALBUMIN 2.3 g/dL (3.4-5.0); CALCIUM 8.1 mg/dL (8.5-10.1); CREATININE 0.5 mg/dL (0.6-1.3); POTASSIUM 3.7 mmol/L (3.5-5.1); TOTAL BILIRUBIN 0.3 mg/dL (<0.1-1.0); TOTAL PROTEIN 6.5 g/dL (6.4-8.2)
[2017-12-08 06:41] LABS: HYPOCHROMASIA 2+; PLATELET ESTIMATE ADEQUATE
[2017-12-08 06:42] LABS: ANISOCYTOSIS 2+; MICROCYTES 1+; TARGET CELLS Occasional
--- NOTE | 2017-12-08 14:34 | EKG ---
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1925 Requested By: John Wick Order Number: [id number] Shantal MD: Memo Peck Measurements Intervals [place] Rate: 87 P: 71 [place]: 205 QRS: 69 QRSD: 111 T: 20 QT: 410 QTc: 494 Interpretive Statements Sinus rhythm Ventricular premature complexes Inferior Q waves noted Compared to ECG 12/05/2017 10:50:46 Inferior Q waves now present Electronically Signed On 12-08-2017 14:33:57 CDT by Memo Peck [email or web address] <ELECTRONICALLY SIGNED> By: Memo Peck MD, [facility] 12/08/17 1433 1026 1026 Memo Peck MD, [facility] /EPI
[2017-12-09] VITALS: BP 149/60
[2017-12-09 04:00] VITALS: BP 149/53
--- NOTE | 2017-12-09 07:22 | CON ---
[address] [address] CONSULTATION Name: SALMA PAYNE Room: [address] IN M.R.#: [id number] Admission: 12/05/17 Attend Phys: Meenakshi Tristan Discharge: Date of : [birth year] Report #: [id number] THIS REPORT FOR: //name// CC: Gelacio Wick DATE OF SERVICE: 12/06/2017 INFECTIOUS DISEASE CONSULTATION ATTENDING PHYSICIAN: John Wick DO. REASON FOR EVALUATION: Left-sided parotiditis. HISTORY OF PRESENT ILLNESS: Chart reviewed, patient examined. This is an 89-year-old woman with degree of dementia as well as multiple other medical problems, who was admitted from the senior care with left-sided facial swelling. It has been going on at least last couple of weeks. She does admit to pain. It is difficult to ascertain additional details. It is not clear that she has had fever, but has been noted to be unilateral. However, over recent days, has been more encephalopathic. Of note, she was hospitalized within the last 2-3 weeks. Discharged on 11/20/2017 with sepsis as a complication of urinary tract infections, atrial fibrillation, does have a distal lower extremity wound as well. Evaluation was undertaken including CT of the face and neck. She had left neck and facial soft tissue edema. It is not clear that there is any particular association with the parotid gland. I did have 2 blood cultures collected, one of which is positive for Gram-positive cocci. Of interesting side note, during hospitalization previously, had expectorated what they suspect is a . Chest x-ray showed no particular infiltrate, had some cardiomegaly. Sed rate is 47. ALLERGIES: PENICILLINS, WHICH CAUSES ANAPHYLAXIS. CURRENT MEDICATIONS: Include ceftriaxone. In addition to that, promethazine, ondansetron, clindamycin, morphine sulfate. PAST MEDICAL HISTORY: As noted above, atrial fibrillation, has lower extremity lymphedema, irritable bowel syndrome, glaucoma, anxiety, dementia, hypertension, peripheral vascular disease, depression, osteoarthritis, osteoporosis, venous stasis insufficiency. SOCIAL HISTORY: Nonsmoker, no ethanol. FAMILY HISTORY: [place] [address] CONSULTATION Name: SALMA PAYNE Room: [address] IN [facility]#: [id number] Admission: 12/05/17 Attend Phys: Meenakshi Tristan Discharge: Date of : [birth year] Report #: [id number] REVIEW OF SYSTEMS: Denies any significant dyspnea. Mild shortness of breath at times. Has had some dysphagia, difficulty swallowing. No abdominal related pain. Has not had constipation or diarrhea. PHYSICAL EXAMINATION: GENERAL: She appears chronically ill. She is at least partially oriented. It is clear she has some degree of dementia, appears chronically ill, undernourished. VITAL SIGNS: Temperature 98.5, pulse 90, respirations 18, blood pressure 114/53. SKIN: Warm, dry, no rashes. HEENT: She has marked asymmetry with swelling involving the left face extending to the mandibular area and down to the proximal neck. It is not overtly tender, does not seemed to be centered around the parotid necessarily. There is no fluctuance. The degree of surface inflammation is only mild to moderate. NECK: Seemingly supple. LUNGS: Diminished breath sounds, scattered crackles. HEART: She has a systolic murmur she reportedly is unaware of. ABDOMEN: Soft, nontender, nondistended. EXTREMITIES: No cyanosis. GENITOURINARY AND RECTAL: Deferred. LABORATORY DATA: Blood cultures 1 of 2 with Gram-positive cocci. CT of the neck as noted above. CBC: White count of 19.4, H and H 9.7 and 32.1, platelets of 331. Some lymphocytopenia of 400 and monocytosis of 1600. Monospot was negative. Lactic acid 1.8. Urinalysis unremarkable. Echo does show moderate aortic stenosis. ASSESSMENT: Left-sided facial skin and soft tissue infection with cellulitis. It is not clear to me that there is involvement of the parotid at this point. Continue empiric antimicrobial therapy. I am not convinced that blood cultures are true positive. We will await those results. Should have adequate coverage including Staph and Strep. At this point, she is not overtly toxic; however, she is certainly at risk for nosocomial related infectious complications including aspiration pneumonitis. We will have to monitor expectantly. <ELECTRONICALLY SIGNED> By: Elieser Chávez MD 12/09/17 0722 1145 1949Elieser Chávez MD /nt
[2017-12-09 07:45] VITALS: BP 142/58
[2017-12-09 12:26] VITALS: BP 155/78
[2017-12-09 15:51] VITALS: BP 155/78; BP 160/79
[2017-12-09 20:00] VITALS: BP 152/77
[2017-12-10] VITALS: BP 137/76
[2017-12-10 04:00] VITALS: BP 150/69
[2017-12-10 08:00] VITALS: BP 141/64
[2017-12-10 12:19] VITALS: BP 150/74
[2017-12-10 15:38] VITALS: BP 148/76
[2017-12-10 20:00] VITALS: BP 152/78
[2017-12-11] VITALS: BP 152/68
[2017-12-11 04:18] VITALS: BP 145/74
[2017-12-11 08:00] VITALS: BP 156/72
[2017-12-11 11:46] VITALS: BP 143/53
[2017-12-11 16:00] VITALS: BP 145/56
[2017-12-11 20:00] VITALS: BP 152/57
[2017-12-12] VITALS: BP 133/86
[2017-12-12 04:00] VITALS: BP 151/62
[2017-12-12 08:00] VITALS: BP 143/55
[2017-12-12 11:00] VITALS: BP 132/65
[2017-12-12 12:40] LABS: ABSOLUTE BASOPHILS 0.1 thou/uL (0.0-0.2); ABSOLUTE EOSINOPHILS 0.2 thou/uL (0.0-0.7); ABSOLUTE LYMPHOCYTES 0.8 thou/uL (0.8-5.3); ABSOLUTE MONOCYTES 0.5 thou/uL (0.0-1.2); ABSOLUTE NEUTROPHILS 3.3 thou/uL (1.6-8.1); BASOPHILS 1.6 %; EOSINOPHILS 4.3 %; HEMATOCRIT 29.6 % (37.0-47.0); HEMOGLOBIN 9.3 gm/dL (12.0-15.0); LYMPHOCYTES 16.3 %; MCH 23.1 pg (26.0-34.0); MCHC 31.4 g/dL (28.0-37.0); MCV 73.6 fL (80.0-100.0); MONOCYTES 9.3 %; MPV 7.5 fl. (7.2-11.1); NUCLEATED RBCS 0 /100WBC; PLATELET COUNT* 308 thou/uL (150-400); POLYS 68.5 %; RBC 4.01 mil/uL (4.20-5.00); WBC 4.9 thou/uL (4.0-11.0)
[2017-12-12 13:08] LABS: CALCIUM 8.3 mg/dL (8.5-10.1); CREATININE 0.6 mg/dL (0.6-1.3)
[2017-12-12 13:11] LABS: POTASSIUM 2.8 mmol/L (3.5-5.1)
[2017-12-12 15:00] VITALS: BP 124/58
[2017-12-12 20:00] VITALS: BP 137/58
[2017-12-13] VITALS: BP 136/61
[2017-12-13 04:00] VITALS: BP 129/76
[2017-12-13 04:39] LABS: ABSOLUTE BASOPHILS 0.1 thou/uL (0.0-0.2); ABSOLUTE EOSINOPHILS 0.3 thou/uL (0.0-0.7); ABSOLUTE LYMPHOCYTES 0.8 thou/uL (0.8-5.3); ABSOLUTE MONOCYTES 0.6 thou/uL (0.0-1.2); ABSOLUTE NEUTROPHILS 2.7 thou/uL (1.6-8.1); BASOPHILS 2.2 %; EOSINOPHILS 5.8 %; HEMATOCRIT 27.6 % (37.0-47.0); HEMOGLOBIN 8.6 gm/dL (12.0-15.0); LYMPHOCYTES 18.4 %; MCH 22.9 pg (26.0-34.0); MCV 73.8 fL (80.0-100.0); MPV 7.9 fl. (7.2-11.1); NUCLEATED RBCS 0 /100WBC; PLATELET COUNT* 264 thou/uL (150-400); POLYS 60.6 %; RBC 3.75 mil/uL (4.20-5.00); RDW-CV 19.1 % (10.5-14.5); WBC 4.4 thou/uL (4.0-11.0)
[2017-12-13 04:48] LABS: CREATININE 0.5 mg/dL (0.6-1.3); POTASSIUM 3.7 mmol/L (3.5-5.1)
[2017-12-13 05:56] LABS: ANISOCYTOSIS 2+; HYPOCHROMASIA 1+; MICROCYTES 2+; OVALOCYTES Occasional; POIKILOCYTOSIS 1+; TARGET CELLS 1+
[2017-12-13 05:57] LABS: POLYCHROMASIA Occasional
[2017-12-13 08:00] VITALS: BP 125/54
[2017-12-13] MEDS ORDERED: ZYVOX600 MG PO (10:38)
[2017-12-13 10:55] VITALS: BP 129/76
[2017-12-13 11:48] VITALS: BP 131/59
== END 2017-12-13 13:13 | DRG 853 ==
LOC: M.2W 13:19 → M.TBA-ER 13:19 → M.2W 16:46
PROVIDERS: Internal Medicine Infectious Disease; Physician Assistant; ADMIT Internal Medicine
PROC: 0JBQ0ZZ Excision of Right Foot Subcutaneous Tissue and Fascia, Open Approach (ICD-10-PCS; principal; 2017-12-05)
DX: A41.02 Sepsis due to Methicillin resistant Staphylococcus aureus (principal); G93.40 Encephalopathy, unspecified; L03.211 Cellulitis of face; K11.20 Sialoadenitis, unspecified; F03.90 Unspecified dementia, unspecified severity, without behavioral disturbance, psychotic disturbance, mood disturbance, and anxiety; I35.0 Nonrheumatic aortic (valve) stenosis; G31.89 Other specified degenerative diseases of nervous system; K58.9 Irritable bowel syndrome, unspecified; I48.91 Unspecified atrial fibrillation; S90.921A Unspecified superficial injury of right foot, initial encounter; X58.XXXA Exposure to other specified factors, initial encounter; Y93.89 Activity, other specified; Z88.0 Allergy status to penicillin; Z79.2 Long term (current) use of antibiotics; Z79.899 Other long term (current) drug therapy; Z79.01 Long term (current) use of anticoagulants; Y92.89 Other specified places as the place of occurrence of the external cause; Y99.8 Other external cause status